=== PATIENT | female | born 1995 | race Caucasian/White ===

== ENCOUNTER → 2024-05-01 14:46 | Outpatient (REF) | payer OTHER, SELFPAY | LOC: RAD 14:46 | PROVIDERS: ATTENDING PHYSICIAN Obstetrics & Gynecology | DX: O9A.211 Injury, poisoning and certain other consequences of external causes complicating pregnancy, first trimester (principal) | CPT/HCPCS: 76801 ==

== ENCOUNTER → 2024-05-13 16:48 | Outpatient (REF) | payer OTHER, SELFPAY | LOC: PNTC 16:48 | PROVIDERS: ATTENDING PHYSICIAN Obstetrics & Gynecology | DX: Z36.82 Encounter for antenatal screening for nuchal translucency (principal); Z36.0 Encounter for antenatal screening for chromosomal anomalies; O99.210 Obesity complicating pregnancy, unspecified trimester; O09.819 Supervision of pregnancy resulting from assisted reproductive technology, unspecified trimester; O99.280 Endocrine, nutritional and metabolic diseases complicating pregnancy, unspecified trimester | CPT/HCPCS: 76801; 76813 ==

== ENCOUNTER → 2024-06-05 06:46 | Outpatient (REF) | payer OTHER, SELFPAY | LOC: PNTC 06:46 | PROVIDERS: ATTENDING PHYSICIAN Obstetrics & Gynecology | DX: O09.819 Supervision of pregnancy resulting from assisted reproductive technology, unspecified trimester (principal); O99.280 Endocrine, nutritional and metabolic diseases complicating pregnancy, unspecified trimester | CPT/HCPCS: 76805 ==

== ENCOUNTER → 2024-07-01 16:11 | Outpatient (REF) | payer OTHER, SELFPAY | LOC: PNTC 16:11 | PROVIDERS: ATTENDING PHYSICIAN Obstetrics & Gynecology | DX: O09.819 Supervision of pregnancy resulting from assisted reproductive technology, unspecified trimester (principal); O99.841 Bariatric surgery status complicating pregnancy, first trimester; O99.210 Obesity complicating pregnancy, unspecified trimester; I10 Essential (primary) hypertension; O99.280 Endocrine, nutritional and metabolic diseases complicating pregnancy, unspecified trimester | CPT/HCPCS: 76811 ==

== ENCOUNTER → 2024-07-30 06:59 | Outpatient (REF) | payer OTHER, SELFPAY | LOC: PNTC 06:59 | PROVIDERS: ATTENDING PHYSICIAN Obstetrics & Gynecology | DX: O10.119 Pre-existing hypertensive heart disease complicating pregnancy, unspecified trimester (principal); O09.819 Supervision of pregnancy resulting from assisted reproductive technology, unspecified trimester; O99.280 Endocrine, nutritional and metabolic diseases complicating pregnancy, unspecified trimester | CPT/HCPCS: 76816 ==

== ENCOUNTER 2024-08-11 19:23 | Observation (INO) | payer OTHER, SELFPAY ==
[2024-08-11 19:52] VITALS: BP 141/87; BMI 37.6
[2024-08-11 21:00] LABS: Urine Albumin Negative (Neg - Trace); Urine Bilirubin Negative (Negative); Urine Character Clear (Clear); Urine Color Yellow; Urine Glucose Negative (Negative); Urine Ketone Negative (Negative); Urine Leukocyte Negative (Negative); Urine Nitrite Negative (Negative); Urine Occult Blood Negative (Negative); Urine Urobilinogen Negative (Neg - 1+)
== END 2024-08-11 21:38 | disposition home or self-care (01) ==
LOC: LDRP 19:23
PROVIDERS: Obstetrics & Gynecology; ADMITTING PHYSICIAN Obstetrics & Gynecology
DX: R10.9 Unspecified abdominal pain (principal); O09.812 Supervision of pregnancy resulting from assisted reproductive technology, second trimester; O09.299 Supervision of pregnancy with other poor reproductive or obstetric history, unspecified trimester; Z3A.26 26 weeks gestation of pregnancy; O10.912 Unspecified pre-existing hypertension complicating pregnancy, second trimester; O99.282 Endocrine, nutritional and metabolic diseases complicating pregnancy, second trimester; E03.9 Hypothyroidism, unspecified; O99.842 Bariatric surgery status complicating pregnancy, second trimester; Z79.890 Hormone replacement therapy; Z14.8 Genetic carrier of other disease
CPT/HCPCS: 81003; G0378

== ENCOUNTER → 2024-08-19 11:41 | Outpatient (REF) | payer OTHER, SELFPAY | LOC: PNTC 11:41 | PROVIDERS: ATTENDING PHYSICIAN Obstetrics & Gynecology | DX: O36.8190 Decreased fetal movements, unspecified trimester, not applicable or unspecified (principal); R25.2 Cramp and spasm | CPT/HCPCS: 76815 ==

== ENCOUNTER → 2024-08-27 07:00 | Outpatient (REF) | payer OTHER, SELFPAY | LOC: PNTC 07:00 | PROVIDERS: ATTENDING PHYSICIAN Obstetrics & Gynecology | DX: O10.119 Pre-existing hypertensive heart disease complicating pregnancy, unspecified trimester (principal); O99.280 Endocrine, nutritional and metabolic diseases complicating pregnancy, unspecified trimester; O09.819 Supervision of pregnancy resulting from assisted reproductive technology, unspecified trimester; Z98.84 Bariatric surgery status | CPT/HCPCS: 76816 ==

== ENCOUNTER → 2024-09-16 06:53 | Outpatient (REF) | payer OTHER, SELFPAY | LOC: PNTC 06:53 | PROVIDERS: ATTENDING PHYSICIAN Obstetrics & Gynecology | DX: O10.119 Pre-existing hypertensive heart disease complicating pregnancy, unspecified trimester (principal); O99.280 Endocrine, nutritional and metabolic diseases complicating pregnancy, unspecified trimester; O09.819 Supervision of pregnancy resulting from assisted reproductive technology, unspecified trimester; O99.840 Bariatric surgery status complicating pregnancy, unspecified trimester | CPT/HCPCS: 76816 ==

== ENCOUNTER → 2024-09-24 13:48 | Outpatient (REF) | payer OTHER, SELFPAY | LOC: PNTC 13:48 | PROVIDERS: ATTENDING PHYSICIAN Obstetrics & Gynecology | DX: O10.119 Pre-existing hypertensive heart disease complicating pregnancy, unspecified trimester (principal); O99.280 Endocrine, nutritional and metabolic diseases complicating pregnancy, unspecified trimester; O09.819 Supervision of pregnancy resulting from assisted reproductive technology, unspecified trimester; O99.840 Bariatric surgery status complicating pregnancy, unspecified trimester | CPT/HCPCS: 59025; 76815 ==

== ENCOUNTER → 2024-10-01 07:50 | Outpatient (REF) | payer OTHER, SELFPAY | LOC: PNTC 07:50 | PROVIDERS: ATTENDING PHYSICIAN Obstetrics & Gynecology | DX: O10.119 Pre-existing hypertensive heart disease complicating pregnancy, unspecified trimester (principal); O99.280 Endocrine, nutritional and metabolic diseases complicating pregnancy, unspecified trimester; O09.819 Supervision of pregnancy resulting from assisted reproductive technology, unspecified trimester; O99.840 Bariatric surgery status complicating pregnancy, unspecified trimester | CPT/HCPCS: 59025; 76818 ==

== ENCOUNTER → 2024-10-08 07:32 | Outpatient (REF) | payer OTHER, SELFPAY | LOC: PNTC 07:32 | PROVIDERS: ATTENDING PHYSICIAN Obstetrics & Gynecology | DX: O16.9 Unspecified maternal hypertension, unspecified trimester (principal); O99.280 Endocrine, nutritional and metabolic diseases complicating pregnancy, unspecified trimester; O09.819 Supervision of pregnancy resulting from assisted reproductive technology, unspecified trimester; O99.840 Bariatric surgery status complicating pregnancy, unspecified trimester | CPT/HCPCS: 59025; 76816; 76818 ==

== ENCOUNTER 2024-10-14 16:34 | Observation (INO) | payer OTHER, SELFPAY ==
[2024-10-14 16:47] VITALS: BP 131/70; BMI 38.8
[2024-10-14] MEDS: LR 1000 IV (17:09)
[2024-10-14 17:44] LABS: Urine Albumin Negative (Neg - Trace); Urine Bilirubin Negative (Negative); Urine Character Slightly Cloudy (Clear); Urine Color Yellow; Urine Glucose Negative (Negative); Urine Ketone Negative (Negative); Urine Leukocyte Negative (Negative); Urine Nitrite Negative (Negative); Urine Occult Blood Negative (Negative); Urine Urobilinogen Negative (Neg - 1+)
[2024-10-14] MEDS: AFLURIA (36 mos+) 2024-2025 FORMULA 0.5 ML IM (18:39)
== END 2024-10-14 18:50 | disposition home or self-care (01) ==
LOC: LDRP 16:34
PROVIDERS: ADMITTING PHYSICIAN Student in an Organized Health Care Education/Training Program; FAMILY PHYSICIAN Obstetrics & Gynecology
DX: O47.03 False labor before 37 completed weeks of gestation, third trimester (principal); Z3A.35 35 weeks gestation of pregnancy; O09.813 Supervision of pregnancy resulting from assisted reproductive technology, third trimester; O99.283 Endocrine, nutritional and metabolic diseases complicating pregnancy, third trimester; E03.9 Hypothyroidism, unspecified; O99.843 Bariatric surgery status complicating pregnancy, third trimester; J45.990 Exercise induced bronchospasm; O10.013 Pre-existing essential hypertension complicating pregnancy, third trimester; O99.213 Obesity complicating pregnancy, third trimester; Z79.890 Hormone replacement therapy; Z88.5 Allergy status to narcotic agent; Z82.49 Family history of ischemic heart disease and other diseases of the circulatory system; Z83.3 Family history of diabetes mellitus; Z23 Encounter for immunization
CPT/HCPCS: 81003; 87070; 87086; 90686; G0008; G0378

== ENCOUNTER → 2024-10-15 08:08 | Outpatient (REF) | payer OTHER, SELFPAY | LOC: PNTC 08:08 | PROVIDERS: ATTENDING PHYSICIAN Obstetrics & Gynecology | DX: O16.9 Unspecified maternal hypertension, unspecified trimester (principal); O09.819 Supervision of pregnancy resulting from assisted reproductive technology, unspecified trimester; O99.213 Obesity complicating pregnancy, third trimester; O99.283 Endocrine, nutritional and metabolic diseases complicating pregnancy, third trimester; O99.843 Bariatric surgery status complicating pregnancy, third trimester | CPT/HCPCS: 59025; 76815 ==

== ENCOUNTER → 2024-10-22 11:22 | Outpatient (REF) | payer OTHER, SELFPAY | LOC: PNTC 11:22 | PROVIDERS: ATTENDING PHYSICIAN Obstetrics & Gynecology | DX: O10.119 Pre-existing hypertensive heart disease complicating pregnancy, unspecified trimester (principal); O99.280 Endocrine, nutritional and metabolic diseases complicating pregnancy, unspecified trimester; O09.819 Supervision of pregnancy resulting from assisted reproductive technology, unspecified trimester; O99.840 Bariatric surgery status complicating pregnancy, unspecified trimester | CPT/HCPCS: 59025; 76815 ==

== ENCOUNTER → 2024-10-29 07:32 | Outpatient (REF) | payer OTHER, SELFPAY | LOC: PNTC 07:32 | PROVIDERS: ATTENDING PHYSICIAN Obstetrics & Gynecology | DX: O10.119 Pre-existing hypertensive heart disease complicating pregnancy, unspecified trimester (principal); O99.280 Endocrine, nutritional and metabolic diseases complicating pregnancy, unspecified trimester; O09.819 Supervision of pregnancy resulting from assisted reproductive technology, unspecified trimester; O99.840 Bariatric surgery status complicating pregnancy, unspecified trimester | CPT/HCPCS: 59025; 76816 ==

== ENCOUNTER 2024-11-03 19:46 | Inpatient (IN) | payer OTHER, SELFPAY ==
[2024-11-03 19:50] VITALS: BMI 35.3
[2024-11-03] MEDS: CYTOTEC 50 MICROGRAM VAG (20:26)
[2024-11-03 20:27] LABS: % Basophils 0.4 % (0-2); % Eosinophils 1.1 % (0-6); % Immature Granulocytes 2.2 % (0-0.5); % Lymphocytes 20.8 % (20.5-51.1); % Monocytes 6.3 % (1.7-9.3); % Neutrophils 69.2 % (42.2-75.2); Absolute Eosinophils 0.1 10^3/uL (0-0.7); Absolute Immature Granulocytes 0.2 10^3/uL (0-0.05); Absolute Lymphocytes 2.1 10^3/uL (1.2-3.4); Absolute Monocytes 0.6 10^3/uL (0.1-0.6); Absolute Neutrophils 7.1 10^3/uL (1.4-6.5); Hematocrit 31.5 % (37.0-47.0); Hemoglobin 10.3 g/dL (12.0-16.0); Mean Corp Hgb Conc. 32.7 g/dL (33.0-37.0); Mean Corpuscular Hgb 27.4 pg (27.0-31.0); Mean Corpuscular Volume 83.8 fL (81.0-99.0); Mean Platelet Volume 10.9 fL (7.4-10.4); Nucleated Red Blood Cells % 0 %; Platelet Count 256 10^3/uL (130-400); Red Blood Cell Count 3.76 10^6/uL (4.20-5.40); Red Cell Dist. Width 13.2 % (11.5-14.5); White Blood Cell Count 10.2 10^3/uL (4.8-10.8)
[2024-11-03 20:48] LABS: ALT (SGPT) 13 U/L (0-35); AST (SGOT) 16 U/L (14-36); Albumin 3.4 g/dl (3.5-5.0); Alkaline Phosphatase 116 U/L (38-126); Blood Urea Nitrogen 4 mg/dl (7-17); Calcium 8.5 mg/dl (8.4-10.2); Carbon Dioxide 16 mmol/L (22-30); Chloride 110 mmol/L (98-107); Estimated Creatinine Clearance > 125 ml/min; Glucose 153 mg/dl (70-99); Potassium 3.7 mmol/L (3.5-5.1); Sodium 136 mmol/L (135-145); Total Bilirubin 0.6 mg/dl (0.2-1.3); Total Protein 6.1 g/dl (6.3-8.2); eGFR > 60.00
[2024-11-03] MEDS: LR 1000 IV (22:50)
[2024-11-04 01:24] VITALS: BP 137/82
[2024-11-04] MEDS: CYTOTEC 25 MICROGRAM PO ×2 (01:46→06:10)
[2024-11-04] MEDS: MORPHINE SULFATE 2 MG IV (02:13)
[2024-11-04] MEDS: SYNTHROID 175 MCG PO (06:10)
[2024-11-04] MEDS: PROCARDIA XL (EXTENDED RELEASE) 60 MG PO (08:02)
[2024-11-04] MEDS: LR 1000 IV ×3 (09:00→23:32)
[2024-11-04] MEDS: CYTOTEC 50 MICROGRAM PO (09:08)
[2024-11-04] MEDS: BRETHINE 250 MCG SC (10:20)
[2024-11-04] MEDS: PITOCIN 30 UNITS/NSS 500 ML IV (13:11)
[2024-11-04] MEDS: CYTOTEC PO (15:26)
[2024-11-04] MEDS: SUBLIMAZE 100 MCG EPIDURAL (15:41)
[2024-11-04] MEDS: FENTANYL/BUPIVACAINE 100 EPIDURAL (15:42)
[2024-11-05] MEDS: FENTANYL/BUPIVACAINE 100 EPIDURAL ×2 (00:28→08:21)
[2024-11-05] MEDS: SYNTHROID 175 MCG PO (06:20)
[2024-11-05] MEDS: CYTOTEC PO ×3 (06:25)
[2024-11-05] MEDS: PROCARDIA XL (EXTENDED RELEASE) 60 MG PO (08:00)
[2024-11-05] MEDS: AFRIN NASAL SPRAY 2 SPRAYS NASAL (10:05)
[2024-11-05] MEDS: CYTOTEC 800 MCG RECTAL (11:18)
[2024-11-05] MEDS: TRANEXAMIC ACID 100 IV (11:19)
[2024-11-05] MEDS: HEMABATE 250 MCG IM (11:22)
[2024-11-05 12:14] LABS: Hematocrit 29.3 % (37.0-47.0); Hemoglobin 9.7 g/dL (12.0-16.0); Mean Corp Hgb Conc. 33.1 g/dL (33.0-37.0); Mean Corpuscular Hgb 27.6 pg (27.0-31.0); Mean Corpuscular Volume 83.2 fL (81.0-99.0); Mean Platelet Volume 11.1 fL (7.4-10.4); Platelet Count 241 10^3/uL (130-400); Red Blood Cell Count 3.52 10^6/uL (4.20-5.40); Red Cell Dist. Width 13.2 % (11.5-14.5); White Blood Cell Count 18.8 10^3/uL (4.8-10.8)
[2024-11-05 12:16] LABS: PT 13.7 Sec (11.4-14.6)
[2024-11-05 12:17] LABS: APTT 29.7 Sec (23.4-35.0); Fibrinogen 511 MG/DL (199-459)
[2024-11-05 15:01] LABS: Protein/creatinine Ratio 0.1; Urine Protein 8 mg/dl
[2024-11-05] MEDS: TYLENOL 650 MG PO (18:35)
[2024-11-05] MEDS: AFRIN NASAL SPRAY NASAL (20:00)
[2024-11-06] MEDS: TYLENOL 650 MG PO ×2 (04:48→09:07)
[2024-11-06 05:08] LABS: Hematocrit 23.8 % (37.0-47.0); Hemoglobin 8.1 g/dL (12.0-16.0); Mean Corpuscular Hgb 28.2 pg (27.0-31.0); Mean Corpuscular Volume 82.9 fL (81.0-99.0); Mean Platelet Volume 10.9 fL (7.4-10.4); Platelet Count 221 10^3/uL (130-400); Red Blood Cell Count 2.87 10^6/uL (4.20-5.40); Red Cell Dist. Width 13.3 % (11.5-14.5); White Blood Cell Count 19.7 10^3/uL (4.8-10.8)
[2024-11-06 05:42] LABS: ALT (SGPT) 13 U/L (0-35); AST (SGOT) 28 U/L (14-36); Albumin 2.6 g/dl (3.5-5.0); Alkaline Phosphatase 86 U/L (38-126); Blood Urea Nitrogen 5 mg/dl (7-17); Calcium 8.8 mg/dl (8.4-10.2); Carbon Dioxide 18 mmol/L (22-30); Chloride 109 mmol/L (98-107); Estimated Creatinine Clearance > 125 ml/min; Glucose 85 mg/dl (70-99); Potassium 3.8 mmol/L (3.5-5.1); Sodium 136 mmol/L (135-145); Total Bilirubin 0.7 mg/dl (0.2-1.3); Total Protein 5.2 g/dl (6.3-8.2); eGFR > 60.00
[2024-11-06] MEDS: SYNTHROID 175 MCG PO (06:10)
[2024-11-06] MEDS: PROCARDIA XL (EXTENDED RELEASE) 60 MG PO (07:43)
[2024-11-06] MEDS: FEOSOL 325 MG PO (07:43)
[2024-11-06] MEDS: AFRIN NASAL SPRAY NASAL ×2 (08:00→20:00)
[2024-11-07] MEDS: SYNTHROID 175 MCG PO (06:29)
[2024-11-07] MEDS: PROCARDIA XL (EXTENDED RELEASE) 60 MG PO (08:13)
[2024-11-07] MEDS: TYLENOL 650 MG PO (08:13)
[2024-11-07] MEDS: FEOSOL 325 MG PO (08:14)
[2024-11-07] MEDS: SENOKOT-S 1 TABLET PO (08:14)
[2024-11-07] MEDS: AFRIN NASAL SPRAY NASAL (10:27)
[2024-11-07 16:24] LABS: Syphilis/T. pallidum Ab Reflex Negative (Negative)
== END 2024-11-07 13:00 | disposition home or self-care (01) | DRG 807 ==
LOC: LDRP 19:46
PROVIDERS: Obstetrics & Gynecology; Student in an Organized Health Care Education/Training Program; ADMITTING PHYSICIAN Obstetrics & Gynecology
PROC: 3E0P7VZ Introduction of Hormone into Female Reproductive, Via Natural or Artificial Opening (ICD-10-PCS; 2024-11-03)
PROC: 10907ZC Drainage of Amniotic Fluid, Therapeutic from Products of Conception, Via Natural or Artificial Opening (ICD-10-PCS; 2024-11-04)
PROC: 3E033VJ Introduction of Other Hormone into Peripheral Vein, Percutaneous Approach (ICD-10-PCS; 2024-11-04)
PROC: 4A1HXCZ Monitoring of Products of Conception, Cardiac Rate, External Approach (ICD-10-PCS; 2024-11-04)
PROC: 0KQM0ZZ Repair Perineum Muscle, Open Approach (ICD-10-PCS; 2024-11-05)
PROC: 10E0XZZ Delivery of Products of Conception, External Approach (ICD-10-PCS; 2024-11-05)
DX: O16.4 Unspecified maternal hypertension, complicating childbirth (principal); Z37.0 Single live birth; Z3A.38 38 weeks gestation of pregnancy; Z88.5 Allergy status to narcotic agent; O90.81 Anemia of the puerperium; O70.1 Second degree perineal laceration during delivery; O72.1 Other immediate postpartum hemorrhage
CPT/HCPCS: 88307; 80053; 82570; 84156; 85025; 85027; 85384; 85610; 85730; 86780; 86850; 86900; 86901